=== PATIENT | male | born 1985 | race African-American/Black ===

== ENCOUNTER 2019-04-25 04:33 | Emergency (ER) | payer OTHER ==
[~2019-04-25] VITALS: Ht 185.4 cm; Wt 71.7 kg
[~2019-04-25 04:33] MED LIST: MOTRIN800 MG PO
== END 2019-04-25 07:37 | disposition home or self-care (01) ==
LOC: ER 04:33
DX: F11.23 Opioid dependence with withdrawal (principal)

== ENCOUNTER 2020-02-09 20:21 | Emergency (ER) | payer OTHER ==
[~2020-02-09] VITALS: Ht 185.4 cm; Wt 81.6 kg
== END 2020-02-09 21:31 | disposition home or self-care (01) ==
LOC: ER 20:21
DX: R53.1 Weakness (principal); M25.50 Pain in unspecified joint; F11.188 Opioid abuse with other opioid-induced disorder

== ENCOUNTER → 2022-06-02 | Emergency (ER) | payer OTHER ==
[~2022-06-02] VITALS: Ht 185.4 cm; Wt 77.1 kg
== END | disposition left against medical advice (07) ==
LOC: ER 06:08
DX: F19.239 Other psychoactive substance dependence with withdrawal, unspecified (principal)